=== PATIENT | female | born 1990 | race Caucasian/White ===

== ENCOUNTER 2017-04-29 13:21 | Emergency (ER) | payer BC, OTHER ==
[2017-04-29] MEDS ORDERED: Adenosine 6 MG/2 ML SDV IVPUSH ONE (13:28)
[2017-04-29] MEDS ORDERED: Sodium Chloride 0.9% 1,000 ML IV ONE (13:28)
[2017-04-29 14:28] LABS: CHLORIDE,CL 108 mmol/L (98-110); SODIUM,NA 138 mmol/L (136-146)
[2017-04-29] MEDS ORDERED: Iopamidol 755 MG/ML 200 ML Multipack Bottle IVPUSH ONE (15:44)
--- NOTE | 2017-04-29 16:09 | CT ---
EXAMINATION: CTA chest HISTORY: Pain, patient is COMPARISON: None TECHNIQUE: Axial CT images obtained through the chest following the administration of 30 mL of Isovue -370 the left antecubital fossa. Coronal and sagittal reconstructions obtained. FINDINGS: The lungs are clear without focal consolidation. No pleural effusion or pneumothorax. Mild focal air trapping within the lung bases. The heart is normal in size without a pericardial effusion. Thoracic aorta is normal in caliber. The central pulmonary arteries are clear to the segmental level . There is a possible filling defect noted within the left upper lobe lobe inferiorly, however there is moderate motion artifact. The thoracic aorta is normal in caliber. No mediastinal or hilar lymphad enopathy. No axillary lymphadenopathy. The visualized images of the upper abdomen appear normal. No suspicious osseous abnormalities noted. IMPRESSION: 1. The pulmonary arteries are patent to the segmental level however there is a possible subsegmental a tiny pulmonary embolism is not excluded. 2. Otherwise no acute cardiopulmonary findings. Filling defect within the left upper lobe however thi s cannot be confirmed due to adjacent motion.
--- NOTE | 2017-04-29 16:29 | US ---
EXAMINATION: Transabdominal obstetric ultrasound HISTORY: Tachycardia COMPARISON: 01/15/2017 TECHNIQUE: Grayscale, M-mode, and color Doppler imaging obtained. FINDINGS: There is a single live intrauterine noted in a cephalic position. There is a thre e-vessel cord. Placenta is anterior and appears intact. heart rate is 142 bpm. Amniotic fluid i ndex is normal at 18 cm. Positive breathing, motion, and tone noted. IMPRESSION: 1. Single live intrauterine in a cephalic position. 2. Biophysical profile 10/09.
--- NOTE | 2017-04-29 16:52 | EDM.PDOC ---
ED HPI GENERAL MEDICAL PROBLEM - General Chief Complaint: General Stated Complaint: IRREGULAR HEART RATE Time Seen by Provider: 04/29/17 16:49 Source of Information: Reports: Patient - History of Present Illness INITIAL COMMENTS - FREE TEXT/NARRATIVE: HISTORY AND PHYSICAL: History of present illness: [26-year-old female 35 weeks with IUP presents with chest pain shortness breath rapid heart rates desk actually SVT 180s 190s she was provided adenosine 6 mg IV which converted her to normal sinus rhythm along with 1 L bolus Since she has been comfortable shortness breath resolved no chest pain shortness breath headache dizziness palpitation no bowel or urine symptoms no fever nausea vomiting chills sweats ] Review of systems: As per history of present illness and below otherwise all systems reviewed and negative. Past medical history: As per history of present illness and as reviewed below otherwise noncontributory. Surgical history: As per history of present illness and as reviewed below otherwise noncontributory. Social history: No reported history of drug or alcohol abuse. Family history: As per history of present illness and as reviewed below otherwise noncontributory. Physical exam: HEENT: Atraumatic, normocephalic, pupils reactive, negative for conjunctival pallor or scleral icterus, mucous membranes moist, throat clear, neck supple, nontender, trachea midline. Lungs: Clear to auscultation, breath sounds equal bilaterally, chest nontender. Heart: S1S2, regular, negative for clicks, rubs, or JVD. Abdomen: Soft, nondistended, nontender. Negative for masses or hepatosplenomegaly. Negative for costovertebral tenderness. Pelvis: Stable nontender. Genitourinary: Deferred. Rectal: Deferred. Extremities: Atraumatic, negative for cords or calf pain. Neurovascular unremarkable. Neuro: Awake, alert, oriented. Cranial nerves II through XII unremarkable. Cerebellum unremarkable. Motor and sensory unremarkable throughout. Exam nonfocal. Diagnostics: [CBC CMP troponin d-dimer CT MG of chest Biophysical profile ] Therapeutics: [1 L normal saline bolus Adenosine 6 mg IV ] Impression: [SVT-resolved 35 weeks with IUP I've been consult with her OB provider Chloe David helped formulate plan she will be following the patient this week, moving her appointment up one week essentially ] Definitive disposition and diagnosis as appropriate pending reevaluation and review of above. - Related Data Allergies Allergy/AdvReac Type Severity Reaction Status Date / Time No Known Allergies Allergy Verified 04/29/17 13:26 Home Meds: Home Meds Sertraline [Zoloft] 100 mg PO DAILY 10/10/15 [History] Pantoprazole Sodium [Pantoprazole Sodium] 40 mg PO DAILY 04/29/17 [History] Past Medical History - Past Health History Medical/Surgical History: Denies Medical/Surgical History Social & Family History - Tobacco Use Smoking Status *Q: Never Smoker Second Hand Smoke Exposure: No - Caffeine Use Caffeine Use: Reports: Coffee, Tea - Recreational Drug Use Recreational Drug Use: No ED ROS GENERAL - Review of Systems Review Of Systems: ROS reveals no pertinent complaints other than HPI. ED EXAM, GENERAL - Physical Exam Exam: See Below Course - Vital Signs Last Recorded V/S: Last Vital Signs Temp 97.4 F 04/29/17 13:33 Pulse 188 H 04/29/17 13:33 Resp 18 04/29/17 13:33 BP 141/78 H 04/29/17 13:33 Pulse Ox 98 04/29/17 13:33 - Orders/Labs/Meds Orders: Active Orders 24 hr Category Date Time Status EKG Documentation Completion [RC] STAT Care 04/29/17 13:28 Active Labs: Laboratory Tests 04/29/17 04/29/17 04/29/17 Range/Units 13:38 13:38 13:38 WBC 13.68 H (4.0-11.0) K/uL RBC 4.53 (4.30-5.90) M/uL Hgb 10.8 L (12.0-16.0) g/dL Hct 33.2 L (36.0-46.0) % MCV 73.3 L (80.0-98.0) fL MCH 23.8 L (27.0-32.0) pg MCHC 32.5 (31.0-37.0) g/dL RDW Std Deviation 39.4 (28.0-62.0) fl RDW Coeff of Adan 15 (11.0-15.0) % Plt Count 266 (150-400) K/uL MPV 10.80 (7.40-12.00) fL Neut % (Auto) 68.1 (48.0-80.0) % Lymph % (Auto) 24.9 (16.0-40.0) % [place] % (Auto) 6.4 (0.0-15.0) % Eos % (Auto) 0.5 (0.0-7.0) % Baso % (Auto) 0.1 (0.0-1.5) % Neut # (Auto) 9.3 H (1.4-5.7) K/uL Lymph # (Auto) 3.4 H (0.6-2.4) K/uL [place] # (Auto) 0.9 H (0.0-0.8) K/uL Eos # (Auto) 0.1 (0.0-0.7) K/uL Baso # (Auto) 0.0 (0.0-0.1) K/uL Nucleated RBC % 0.0 /100WBC Nucleated RBCs # 0 K/uL D-Dimer, Quantitative 1.40 H (0.0-0.52) mg/LFEU Sodium 138 (136-146) mmol/L Potassium 3.8 (3.5-5.1) mmol/L Chloride 108 (98-110) mmol/L Carbon Dioxide 17 L (21-31) mmol/L BUN 8 (6.0-23.0) mg/dL Creatinine 0.6 (0.6-1.5) mg/dL Est Cr Clr Drug Dosing 149.79 mL/min Estimated GFR (MDRD) > 60.0 ml/min Glucose 96 (60-110) mg/dL Calcium 9.3 (8.8-10.8) mg/dL Total Bilirubin 0.3 (0.1-1.5) mg/dL AST 20 (5-40) IU/L ALT 19 (8-54) IU/L Alkaline Phosphatase 116 (40-150) Troponin I < 0.10 (0.0-0.29) NG/ML Total Protein 6.6 (6.0-8.0) g/dL Albumin 3.4 L (3.5-5.0) g/dL Globulin 3.2 (2.0-3.5) g/dL Albumin/Globulin Ratio 1.1 L (1.3-2.8) Urine Color Urine Appearance Urine pH (5.0-8.0) Ur Specific [place] (1.001-1.035) Urine Protein (NEGATIVE) mg/dL Urine Glucose (UA) (NEGATIVE) mg/dL Urine Ketones (NEGATIVE) mg/dL Urine Occult Blood (NEGATIVE) Urine Nitrite (NEGATIVE) Urine Bilirubin (NEGATIVE) Urine Urobilinogen (<2.0) EU/dL Ur Leukocyte Esterase (NEGATIVE) Urine RBC (0-2/HPF) Urine WBC (0-5/HPF) Ur Epithelial Cells (NONE-FEW) Urine Bacteria (NEGATIVE) 04/29/17 Range/Units 14:50 WBC (4.0-11.0) K/uL RBC (4.30-5.90) M/uL Hgb (12.0-16.0) g/dL Hct (36.0-46.0) % MCV (80.0-98.0) fL MCH (27.0-32.0) pg MCHC (31.0-37.0) g/dL RDW Std Deviation (28.0-62.0) fl RDW Coeff of Adan (11.0-15.0) % Plt Count (150-400) K/uL MPV (7.40-12.00) fL Neut % (Auto) (48.0-80.0) % Lymph % (Auto) (16.0-40.0) % [place] % (Auto) (0.0-15.0) % Eos % (Auto) (0.0-7.0) % Baso % (Auto) (0.0-1.5) % Neut # (Auto) (1.4-5.7) K/uL Lymph # (Auto) (0.6-2.4) K/uL [place] # (Auto) (0.0-0.8) K/uL Eos # (Auto) (0.0-0.7) K/uL Baso # (Auto) (0.0-0.1) K/uL Nucleated RBC % /100WBC Nucleated RBCs # K/uL D-Dimer, Quantitative (0.0-0.52) mg/LFEU Sodium (136-146) mmol/L Potassium (3.5-5.1) mmol/L Chloride (98-110) mmol/L Carbon Dioxide (21-31) mmol/L BUN (6.0-23.0) mg/dL Creatinine (0.6-1.5) mg/dL Est Cr Clr Drug Dosing mL/min Estimated GFR (MDRD) ml/min Glucose (60-110) mg/dL Calcium (8.8-10.8) mg/dL Total Bilirubin (0.1-1.5) mg/dL AST (5-40) IU/L ALT (8-54) IU/L Alkaline Phosphatase (40-150) Troponin I (0.0-0.29) NG/ML Total Protein (6.0-8.0) g/dL Albumin (3.5-5.0) g/dL Globulin (2.0-3.5) g/dL Albumin/Globulin Ratio (1.3-2.8) Urine Color YELLOW Urine Appearance CLEAR Urine pH 6.0 (5.0-8.0) Ur Specific [place] <= 1.005 (1.001-1.035) Urine Protein NEGATIVE (NEGATIVE) mg/dL Urine Glucose (UA) NEGATIVE (NEGATIVE) mg/dL Urine Ketones NEGATIVE (NEGATIVE) mg/dL Urine Occult Blood NEGATIVE (NEGATIVE) Urine Nitrite NEGATIVE (NEGATIVE) Urine Bilirubin NEGATIVE (NEGATIVE) Urine Urobilinogen 0.2 (<2.0) EU/dL Ur Leukocyte Esterase NEGATIVE (NEGATIVE) Urine RBC 0-1 (0-2/HPF) Urine WBC 0-1 (0-5/HPF) Ur Epithelial Cells RARE (NONE-FEW) Urine Bacteria RARE (NEGATIVE) Meds: Medications Discontinued Medications Generic Name Dose Route Start Last Admin Trade Name Freq PRN Reason Stop Dose Admin Adenosine 6 mg 04/29/17 13:28 04/29/17 14:53 Adenocard IVPUSH 04/29/17 13:29 6 mg NOW ONE Administration Sodium Chloride 1,000 mls @ 999 mls/hr 04/29/17 13:28 04/29/17 14:00 Normal Saline IV 04/29/17 14:28 999 mls/hr STAT ONE Administration Iopamidol 50 ml 04/29/17 15:44 04/29/17 15:45 Isovue Multipack-370 (76%) IVPUSH 04/29/17 15:45 50 ml ONETIME ONE Administration Departure - Departure Time of Disposition: 16:51 Disposition: Home, Self-Care 01 Condition: Good Clinical Impression: SVT (supraventricular tachycardia) - Discharge Information Referrals: PCP,Unknown [Primary Care Provider] - Additional Instructions: Follow-up with OB provider or Saturday, Chloe Garlanderd is aware and desires to follow-up within the week. No specific recommendation at this time Return if symptoms persist or worsen The following information is given to patients seen in the emergency department who are being discharged to home. This information is to outline your options for follow-up care. We provide all patients seen in our emergency department with a follow-up referral. The need for follow-up, as well as the timing and circumstances, are variable depending upon the specifics of your emergency department visit. If you don't have a primary care physician on staff, we will provide you with a referral. We always advise you to contact your personal physician following an emergency department visit to inform them of the circumstance of the visit and for follow-up with them and/or the need for any referrals to a consulting specialist. The emergency department will also refer you to a specialist when appropriate. This referral assures that you have the opportunity for follow-up care with a specialist. All of these measure are taken in an effort to provide you with optimal care, which includes your follow-up. Under all circumstances we always encourage you to contact your private physician who remains a resource for coordinating your care. When calling for follow-up care, please make the office aware that this follow-up is from your recent emergency room visit. If for any reason you are refused follow-up, please contact the [facility] emergency department at and asked to speak to the emergency department charge nurse. - My Orders Last 24 Hours: My Active Orders 04/29/17 13:28 EKG Documentation Completion [RC] STAT - Assessment/Plan Last 24 Hours: My Active Orders 04/29/17 13:28 EKG Documentation Completion [RC] STAT
[2017-04-29 17:07] VITALS: BP 114/65
== END 2017-04-29 17:01 | disposition home or self-care (01) ==
LOC: MW.ED 13:21
DX: O99.413 Diseases of the circulatory system complicating pregnancy, third trimester (principal); I47.1 Supraventricular tachycardia; Z3A.35 35 weeks gestation of pregnancy; Z79.899 Other long term (current) drug therapy
CPT/HCPCS: 36415; 59025; 71275; 76819; 80053; 81001; 84484; 85025; 85379; 93005; 96361; 96374; 99285; J0153; J7040; Q9967; 99283

== ENCOUNTER 2017-05-16 16:36 | Inpatient (IN) | payer BC, OTHER ==
[2017-05-16] MEDS ORDERED: Terbutaline 1 MG/ML SDV SUBCUT PRN (17:11)
[2017-05-16] MEDS ORDERED: Sodium Chloride 0.9% 2.5 ML Syringe FLUSH PRN (17:11)
[2017-05-16] MEDS ORDERED: Lidocaine 1% 50 ML MDV INJECT PRN (17:11)
[2017-05-16] MEDS ORDERED: Misoprostol 200 MCG Tab PO PRN (17:11)
[2017-05-16] MEDS ORDERED: Methylergonovine 0.2 MG/1 ML Amp IM PRN (17:11)
[2017-05-16] MEDS ORDERED: Tranexamic Acid 1,000 MG in Sodium Chloride 0.9% 100 ML IV PRN (17:11)
[2017-05-16] MEDS ORDERED: Nalbuphine 10 MG/1 ML Vial IVPUSH PRN (17:11)
[2017-05-16] MEDS ORDERED: Sodium Chloride 0.9% 10 ML Syringe FLUSH PRN (17:11)
[2017-05-16] MEDS ORDERED: Carboprost Tromethamine 250 MCG/1 ML Amp IM PRN (17:11)
[2017-05-16] MEDS ORDERED: Water For Irrigation,Sterile 1,000 ML Container IRR PRN (17:11)
[2017-05-16] MEDS ORDERED: Oxytocin/0.9 % Sodium Chloride 30 UNIT/500 ML BAG IV SCH ×2 (17:15)
[2017-05-16] MEDS ORDERED: Ampicillin 2 GM in Sodium Chloride 0.9% 100 ML IV ONE (17:30)
[2017-05-16] MEDS ORDERED: hydrOXYzine Pamoate 25 MG Cap PO PRN (17:52)
--- NOTE | 2017-05-16 18:01 | PCM.LDHP ---
L&D History of Present Illness - General Date of Service: 05/16/17 Admit Problem/Dx: Patient Status Order with Admit Dx/Problem 05/16/17 17:11 Patient Status [ADT] Routine Admission Diagnosis/Problem Admission Diagnosis/Problem - planned 05/16/17 17:55 26yo EDC 06/01/2017 37 5/7wks. IOL due to Maternal SVT's, B+, R- equivocal, GBS pos, Source of Information: Patient History Limitations: Reports: No Limitations - History of Present Illness Improves with: Reports: None Worsens with: Reports: None Associated Symptoms: Reports: N - Related Data Allergies/Adverse Reactions: Allergies Allergy/AdvReac Type Severity Reaction Status Date / Time No Known Allergies Allergy Verified 04/29/17 13:26 Home Medications: Home Meds Sertraline [Zoloft] 100 mg PO DAILY 10/10/15 [History] Pantoprazole Sodium [Pantoprazole Sodium] 40 mg PO DAILY 04/29/17 [History] Past Medical History - Past Health History Medical/Surgical History: Denies Medical/Surgical History Social & Family History - Tobacco Use Smoking Status *Q: Never Smoker Second Hand Smoke Exposure: No - Caffeine Use Caffeine Use: Reports: Coffee, Tea - Recreational Drug Use Recreational Drug Use: No H&P Review of Systems - Review of Systems: Review Of Systems: See Below General: Reports: No Symptoms HEENT: Reports: No Symptoms Pulmonary: Reports: No Symptoms Cardiovascular: Reports: No Symptoms Gastrointestinal: Reports: No Symptoms Genitourinary: Reports: No Symptoms Musculoskeletal: Reports: No Symptoms Skin: Reports: No Symptoms Psychiatric: Reports: No Symptoms Neurological: Reports: No Symptoms Hematologic/Lymphatic: Reports: No Symptoms Immunologic: Reports: No Symptoms L&D Exam - Exam Exam: See Below - OB Specific Movement: Active Presentation: Vertex - [place] Score [place] Score Cervix Position: Posterior [place] Score Consistency: Medium [place] Score Effacement: 0-30% [place] Score Dilation: Closed [place] Score Infant's Station: -3 [place] Score Total: 1 - Exam General: Alert, Oriented, Cooperative HEENT: Hearing Intact Lungs: Normal Respiratory Effort GI/Abdominal Exam: Soft Rectal Exam: Deferred Genitourinary: Normal external exam, Normal bimanual exam Back Exam: Full Range of Motion Extremities: Normal Range of Motion, Non-Tender, No Pedal Edema, Normal Capillary Refill Skin: Warm, Dry, Intact Neurological: Cranial Nerves Intact, Normal Gait, Normal Speech, Normal Tone Psychiatric: Alert, Normal Affect, Normal Mood - Problem List (1) Supervision of normal IUP (intrauterine ) in multigravida SNOMED Code(s): 433687318, 968091434 ICD Code: Z34.80 - ENCOUNTER FOR SUPRVSN OF NORMAL , UNSP TRIMESTER Status: Acute Priority: High Current Visit: Yes Qualifiers: Trimester: third trimester Qualified Code(s): Z34.83 - Encounter for supervision of other normal , third trimester (2) GBS (group B Streptococcus carrier), +RV culture, currently SNOMED Code(s): 8464095321045, 2610481218803 ICD Code: O99.820 - STREPTOCOCCUS B CARRIER STATE COMPLICATING Status: Acute Priority: High Current Visit: Yes (3) SVT (supraventricular tachycardia) SNOMED Code(s): 1016305 ICD Code: I47.1 - SUPRAVENTRICULAR TACHYCARDIA Status: Acute Priority: High Current Visit: No Problem List Initiated/Reviewed/Updated: Yes Orders Last 24hrs: Active Orders 24 hr Category Date Time Status Patient Status [ADT] Routine ADT 05/16/17 17:11 Active Bedrest Bathroom Privileges [RC] ASDIRECTED Care 05/16/17 17:11 Active Communication Order [RC] ASDIRECTED Care 05/16/17 17:11 Active Communication Order [RC] ASDIRECTED Care 05/16/17 17:11 Active Communication Order [RC] ASDIRECTED Care 05/16/17 17:11 Active Heart Tones [RC] CONTINUOUS Care 05/16/17 17:11 Active Non Stress Test [RC] PER UNIT ROUTINE Care 05/16/17 17:11 Active May Shower [RC] ASDIRECTED Care 05/16/17 17:11 Active Notify Provider [RC] PRN Care 05/16/17 17:11 Active Notify Provider [RC] PRN Care 05/16/17 17:11 Active Notify Provider [RC] PRN Care 05/16/17 17:11 Active Notify Provider [RC] STAT Care 05/16/17 17:11 Active Oxygen Therapy [RC] ASDIRECTED Care 05/16/17 17:11 Active Up ad Mora [RC] ASDIRECTED Care 05/16/17 17:11 Active Vaginal Exam [RC] PRN Care 05/16/17 17:11 Active Vaginal Exam [RC] PRN Care 05/16/17 17:11 Active Vital Signs [RC] PER UNIT ROUTINE Care 05/16/17 17:11 Active Vital Signs [RC] PER UNIT ROUTINE Care 05/16/17 17:11 Active Regular Diet [DIET] Diet 05/16/17 Dinner Active CBC W/O DIFF,HEMOGRAM [HEME] Routine Lab 05/16/17 17:11 Ordered TYPE AND SCREEN [BBK] Routine Lab 05/16/17 17:11 Ordered Ampicillin 1 gm Med 05/16/17 21:30 Active Sodium Chloride 0.9% [Normal Saline] 50 ml IV Q4H Ampicillin 2 gm Med 05/16/17 17:30 Active Sodium Chloride 0.9% [Normal Saline] 100 ml IV ONETIME Carboprost Tromethamine [Hemabate DS] Med 05/16/17 17:11 Active 250 mcg IM ASDIRECTED PRN Lactated Ringers [Ringers, Lactated] 1,000 ml Med 05/16/17 17:15 Active IV ASDIRECTED Lidocaine 1% [Xylocaine 1%] Med 05/16/17 17:11 Active 50 ml INJECT .ONCE PRN Methylergonovine [Methergine] Med 05/16/17 17:11 Active 0.2 mg IM ASDIRECTED PRN Misoprostol [Cytotec] Med 05/16/17 17:11 Active 200 mcg PO .ONCE PRN Misoprostol [Cytotec] Med 05/16/17 17:40 Active 25 mcg PO Q4H PRN Misoprostol [Cytotec] Med 05/16/17 17:40 Active 25 mcg VAG Q4H PRN Nalbuphine [Nubain] Med 05/16/17 17:11 Active 10 mg IVPUSH Q1H PRN Oxytocin/0.9 % Sodium Chloride [Oxytocin 30 Unit/500 ML Med 05/16/17 17:15 Active -NS] 30 unit in 500 ml IV TITRATE Oxytocin/0.9 % Sodium Chloride [Oxytocin 30 Unit/500 ML Med 05/16/17 17:15 Active -NS] 30 unit in 500 ml IV TITRATE Sodium Chloride 0.9% [Saline Flush] Med 05/16/17 17:11 Active 10 ml FLUSH ASDIRECTED PRN Sodium Chloride 0.9% [Saline Flush] Med 05/16/17 17:11 Active 2.5 ml FLUSH ASDIRECTED PRN Terbutaline [Brethine] Med 05/16/17 17:11 Active 0.25 mg SUBCUT ASDIRECTED PRN Tranexamic Acid [Cyklokapron] 1,000 mg Med 05/16/17 17:11 Active Sodium Chloride 0.9% [Normal Saline] 100 ml IV ONETIME Water For Irrigation,Sterile [Sterile Water for Med 05/16/17 17:11 Active Irrigation] 1,000 ml IRR ASDIRECTED PRN hydrOXYzine Pamoate [Vistaril] Med 05/16/17 17:52 Ordered 50 mg PO BEDTIME PRN Scalp Electrode [WOMSER] Per Unit Routine Oth 05/16/17 17:11 Ordered Medication Administration Instruction [OM.PC] Q3H Oth 05/16/17 17:15 Ordered Peripheral IV Insertion Adult [OM.PC] Routine Oth 05/16/17 17:11 Ordered Resuscitation Status Routine Resus Stat 05/16/17 17:11 Ordered Medication Orders Carboprost Tromethamine (Hemabate Ds) 250 mcg IM ASDIRECTED PRN PRN Reason: Post Hemorrhage Ampicillin Sodium 1 gm/ Sodium (Chloride) 50 mls @ 100 mls/hr IV Q4H CARMEN Ampicillin Sodium 2 gm/ Sodium (Chloride) 100 mls @ 200 mls/hr IV ONETIME ONE Stop: 05/16/17 17:59 Lactated Ringer's (Ringers, Lactated) 1,000 mls @ 150 mls/hr IV ASDIRECTED CARMEN Oxytocin/Sodium Chloride (Oxytocin 30 Unit/500 Ml-Ns) 30 unit in 500 mls @ 250 mls/hr IV TITRATE CARMEN Oxytocin/Sodium Chloride (Oxytocin 30 Unit/500 Ml-Ns) 30 unit in 500 mls @ 2 mls/hr IV TITRATE CARMEN; 2 MUNITS/MIN PRN Reason: Protocol Tranexamic Acid 1,000 mg/ (Sodium Chloride) 110 mls @ 660 mls/hr IV ONETIME PRN PRN Reason: Bleeding Lidocaine HCl (Xylocaine 1%) 50 ml INJECT .ONCE PRN PRN Reason: Laceration repair Methylergonovine Maleate (Methergine) 0.2 mg IM ASDIRECTED PRN PRN Reason: Post Hemorrhage Misoprostol (Cytotec) 200 mcg PO .ONCE PRN PRN Reason: Post Hemorrhage Misoprostol (Cytotec) 25 mcg VAG Q4H PRN PRN Reason: Cervical Ripening Misoprostol (Cytotec) 25 mcg PO Q4H PRN PRN Reason: Cervical Ripening Nalbuphine HCl (Nubain) 10 mg IVPUSH Q1H PRN PRN Reason: Pain (severe 7-10) Sodium Chloride (Saline Flush) 10 ml FLUSH ASDIRECTED PRN PRN Reason: Keep Vein Open Sodium Chloride (Saline Flush) 2.5 ml FLUSH ASDIRECTED PRN PRN Reason: Keep Vein Open Sterile Water (Sterile Water For Irrigation) 1,000 ml IRR ASDIRECTED PRN PRN Reason: delivery Terbutaline Sulfate (Brethine) 0.25 mg SUBCUT ASDIRECTED PRN PRN Reason: Tacysystole Assessment/Plan Comment:: IOL A: 26yo EDC 06/01/2017 37 5/7wks. IOL due to Maternal SVT's, B+, R- equivocal, GBS pos, P: admit, start IOL cytotec to pitocin, Visteril for sleep, Treat GBS when pitocin started or in active labor, If SVT call provider and start cardiac monitoring, anticipate . Dr Ceron updated
[2017-05-16] MEDS: Misoprostol 25 MCG (1/4 of 100 MCG) Tab PO PRN (19:47)
[2017-05-16] MEDS: Misoprostol 25 MCG (1/4 of 100 MCG) Tab VAG PRN (19:48)
[2017-05-16] MEDS ORDERED: Ampicillin 1 GM in Sodium Chloride 0.9% 50 ML IV SCH (21:30)
[2017-05-17] MEDS: Misoprostol 25 MCG (1/4 of 100 MCG) Tab PO PRN (01:38)
[2017-05-17] MEDS: Misoprostol 25 MCG (1/4 of 100 MCG) Tab VAG PRN (01:39)
[2017-05-17] MEDS ORDERED: Ampicillin 2 GM AdvVial IV ONE (06:21)
[2017-05-17] MEDS ORDERED: Sodium Chloride 0.9% 100 ML ONE (06:22)
[2017-05-17] MEDS: Lactated Ringers 1,000 ML IV SCH ×2 (06:30→14:15)
[2017-05-17] MEDS ORDERED: Loperamide 2 MG Cap PO ONE (12:43)
[2017-05-17] MEDS: Ampicillin 1 GM in Sodium Chloride 0.9% 50 ML IV SCH ×2 (14:46→18:41)
--- NOTE | 2017-05-17 14:56 | PCM.PREANE ---
Preanesthetic Assessment - Anesthesia/Transfusion/Family Hx Family History of Anesthesia Reaction: No - Review of Systems General: No Symptoms Pulmonary: No Symptoms Cardiovascular: No Symptoms Gastrointestinal: No Symptoms Neurological: No Symptoms Other: Reports: None (Denies any bleeding or clotting problems) - Physical Assessment Height: 1.75 m Weight: 113.398 kg ASA Class: 2 Mental Status: Alert & Oriented x3 Airway Class: Mallampati = 2 Dentition: Reports: Normal Dentition ROM/Head Extension: Full - Lab Values: Laboratory Last Values WBC 10.50 K/uL (4.0-11.0) 05/16/17 17:49 RBC 4.53 M/uL (4.30-5.90) 05/16/17 17:49 Hgb 10.5 g/dL (12.0-16.0) L 05/16/17 17:49 Hct 32.7 % (36.0-46.0) L 05/16/17 17:49 MCV 72.2 fL (80.0-98.0) L 05/16/17 17:49 MCH 23.2 pg (27.0-32.0) L 05/16/17 17:49 MCHC 32.1 g/dL (31.0-37.0) 05/16/17 17:49 RDW Std Deviation 40.5 fl (28.0-62.0) 05/16/17 17:49 RDW Coeff of Adan 16 % (11.0-15.0) H 05/16/17 17:49 Plt Count 246 K/uL (150-400) 05/16/17 17:49 MPV 11.50 fL (7.40-12.00) 05/16/17 17:49 Nucleated RBC % 0.3 /100WBC 05/16/17 17:49 Nucleated RBCs # 0 K/uL 05/16/17 17:49 Blood Type B POSITIVE 05/16/17 17:49 Antibody Screen NEGATIVE 05/16/17 17:49 - Allergies Allergies/Adverse Reactions: Allergies Allergy/AdvReac Type Severity Reaction Status Date / Time No Known Allergies Allergy Verified 04/29/17 13:26 - Acknowledgements Anesthesia Type Planned: Epidural Pt an Appropriate Candidate for the Planned Anesthesia: Yes Alternatives and Risks of Anesthesia Discussed w Pt/Guardian: Yes Pt/Guardian Understands and Agrees with Anesthesia Plan: Yes PreAnesthesia Questionnaire - Past Health History Medical/Surgical History: Denies Medical/Surgical History FAMILY MEDIATOR History: Reports: Ectopic , - SUBSTANCE USE Smoking Status *Q: Never Smoker Second Hand Smoke Exposure: No Recreational Drug Use History: No - HOME MEDS Home Medications: Home Meds Sertraline [Zoloft] 100 mg PO DAILY 10/10/15 [History] Pantoprazole Sodium [Pantoprazole Sodium] 40 mg PO DAILY 04/29/17 [History] - CURRENT (IN HOUSE) MEDS Current Meds: Current Medications Carboprost Tromethamine (Hemabate Ds) 250 mcg IM ASDIRECTED PRN PRN Reason: Post Hemorrhage Hydroxyzine Pamoate (Vistaril) 50 mg PO BEDTIME PRN PRN Reason: Sleep Last Admin: 05/17/17 00:02 Dose: 50 mg Lactated Ringer's (Ringers, Lactated) 1,000 mls @ 150 mls/hr IV ASDIRECTED CARMEN Last Admin: 05/17/17 14:15 Dose: 150 mls/hr Oxytocin/Sodium Chloride (Oxytocin 30 Unit/500 Ml-Ns) 30 unit in 500 mls @ 250 mls/hr IV TITRATE CARMEN Oxytocin/Sodium Chloride (Oxytocin 30 Unit/500 Ml-Ns) 30 unit in 500 mls @ 2 mls/hr IV TITRATE CARMEN; 2 MUNITS/MIN PRN Reason: Protocol Last Titration: 05/17/17 12:30 Dose: 0 munits/min, 0 mls/hr Tranexamic Acid 1,000 mg/ (Sodium Chloride) 110 mls @ 660 mls/hr IV ONETIME PRN PRN Reason: Bleeding Ampicillin Sodium 1 gm/ Sodium (Chloride) 50 mls @ 100 mls/hr IV Q4H CARMEN Last Admin: 05/17/17 14:46 Dose: 100 mls/hr Lidocaine HCl (Xylocaine 1%) 50 ml INJECT .ONCE PRN PRN Reason: Laceration repair Methylergonovine Maleate (Methergine) 0.2 mg IM ASDIRECTED PRN PRN Reason: Post Hemorrhage Misoprostol (Cytotec) 200 mcg PO .ONCE PRN PRN Reason: Post Hemorrhage Misoprostol (Cytotec) 25 mcg VAG Q4H PRN PRN Reason: Cervical Ripening Last Admin: 05/17/17 01:39 Dose: 25 mcg Misoprostol (Cytotec) 25 mcg PO Q4H PRN PRN Reason: Cervical Ripening Last Admin: 05/17/17 01:38 Dose: 25 mcg Nalbuphine HCl (Nubain) 10 mg IVPUSH Q1H PRN PRN Reason: Pain (severe 7-10) Sodium Chloride (Saline Flush) 10 ml FLUSH ASDIRECTED PRN PRN Reason: Keep Vein Open Sodium Chloride (Saline Flush) 2.5 ml FLUSH ASDIRECTED PRN PRN Reason: Keep Vein Open Sterile Water (Sterile Water For Irrigation) 1,000 ml IRR ASDIRECTED PRN PRN Reason: delivery Terbutaline Sulfate (Brethine) 0.25 mg SUBCUT ASDIRECTED PRN PRN Reason: Tacysystole Discontinued Medications Ampicillin Sodium (Ampicillin) Confirm Administered Dose 2 gm IV .STK-MED ONE Stop: 05/17/17 06:22 Last Admin: 05/17/17 10:47 Dose: Not Given Ampicillin Sodium 1 gm/ Sodium (Chloride) 50 mls @ 100 mls/hr IV Q4H CARMEN Last Admin: 05/17/17 10:42 Dose: 100 mls/hr Ampicillin Sodium 2 gm/ Sodium (Chloride) 100 mls @ 200 mls/hr IV ONETIME ONE Stop: 05/16/17 17:59 Last Admin: 05/17/17 06:37 Dose: 200 mls/hr Sodium Chloride (Normal Saline) Confirm Administered Dose 100 mls @ as directed .ROUTE .STK-MED ONE Stop: 05/17/17 06:23 Last Admin: 05/17/17 10:47 Dose: Not Given Fentanyl/Bupivacaine HCl (Jrnzogvs-Vcuuq-Hr 2 Mcg/Ml-0.125%) Confirm Administered Dose 100 mls @ as directed EP .STK-MED ONE Stop: 05/17/17 14:04 Loperamide HCl (Imodium) 2 mg PO ONETIME ONE Stop: 05/17/17 12:44 Last Admin: 05/17/17 14:09 Dose: 2 mg
[2017-05-17] MEDS ORDERED: Oxytocin 10 Units/1 ML SDV ONE (19:31)
[2017-05-17] MEDS ORDERED: Lanolin 100% Cream 7 GM Tube TOP PRN (19:49)
[2017-05-17] MEDS ORDERED: oxyCODONE 5 MG Tab PO PRN (19:49)
[2017-05-17] MEDS ORDERED: Bisacodyl 10 MG Supp RECTAL PRN (19:49)
[2017-05-17] MEDS ORDERED: Docusate Sodium 100 MG Cap PO PRN (19:49)
[2017-05-17] MEDS ORDERED: Witch Hazel Medicated Pads 40/Jar TOP PRN (19:49)
[2017-05-17] MEDS ORDERED: Ibuprofen 400 MG Tab PO PRN (19:49)
[2017-05-17] MEDS ORDERED: Benzocaine/Menthol 20%-0.5% Spray 78 GM Cannister TOP PRN (19:49)
[2017-05-17] MEDS ORDERED: Acetaminophen 500 MG Tab PO PRN ×2 (19:49)
[2017-05-17] MEDS: Ibuprofen 800 MG Tab PO PRN (20:08)
[2017-05-18] MEDS: Ibuprofen 800 MG Tab PO PRN (09:52)
--- NOTE | 2017-05-18 14:30 | PCM48HPAN ---
Post Anesthesia Note - EVALUATION WITHIN 48HRS OF ANESTHETIC Vital Signs in Normal Range: Yes Patient Participated in Evaluation: Yes Respiratory Function Stable: Yes Airway Patent: Yes Cardiovascular Function Stable: Yes Hydration Status Stable: Yes Pain Control Satisfactory: Yes Nausea and Vomiting Control Satisfactory: Yes Mental Status Recovered: Yes Resp Rate: 16 - COMMENTS/OBSERVATIONS Free Text/Narrative:: Sitting up in bed with baby and denies any complaints.
[2017-05-18 16:22] VITALS: BP 111/69
[2017-05-18] MEDS ORDERED: Measles, Mumps & Rubella Vaccine 0.5 ML SDV SUBCUT ONE (20:45)
--- NOTE | 2017-05-18 20:45 | PCM.DCSUM1 ---
Discharge Summary - Hospital Course Free Text/Narrative:: Discharge home with infant. Follow up in 6 weeks or sooner if needed. - Discharge Data Discharge Date: 05/18/17 Discharge Disposition: Home, Self-Care 01 Condition: Good - Discharge Diagnosis/Problem(s) (1) Supervision of normal IUP (intrauterine ) in multigravida SNOMED Code(s): 031978838, 022600632 ICD Code: Z34.80 - ENCOUNTER FOR SUPRVSN OF NORMAL , UNSP TRIMESTER Status: Acute Priority: High Current Visit: Yes Qualifiers: Trimester: third trimester Qualified Code(s): Z34.83 - Encounter for supervision of other normal , third trimester (2) GBS (group B Streptococcus carrier), +RV culture, currently SNOMED Code(s): 7342029216104, 4446888632289 ICD Code: O99.820 - STREPTOCOCCUS B CARRIER STATE COMPLICATING Status: Acute Priority: High Current Visit: Yes (3) SVT (supraventricular tachycardia) SNOMED Code(s): 1992718 ICD Code: I47.1 - SUPRAVENTRICULAR TACHYCARDIA Status: Acute Priority: High Current Visit: No - Patient Instructions Diet: Usual Diet as Tolerated Activity: As Tolerated, No Strenuous Activities, Rest and Relax Today Driving: May Drive Today Showering/Bathing: May Shower Notify Provider of: Fever, Increased Pain, Swelling and Redness, Nausea and/or Vomiting Other/Special Instructions: Discharge home with . Follow up in 6 weeks or sooner if needed. - Discharge Plan Home Medications: Home Meds Sertraline [Zoloft] 100 mg PO DAILY 10/10/15 [History] Pantoprazole Sodium [Pantoprazole Sodium] 40 mg PO DAILY 04/29/17 [History] - General Info Date of Service: 05/18/17 Admission Dx/Problem (Free Text: Patient Status Order with Admit Dx/Problem 05/16/17 17:11 Patient Status [ADT] Routine Admission Diagnosis/Problem Admission Diagnosis/Problem - planned 05/16/17 17:55 26yo EDC 06/01/2017 37 5/7wks. IOL due to Maternal SVT's, B+, R- equivocal, GBS pos, Functional Status: Reports: Pain Controlled, Tolerating Diet, Ambulating, Urinating - Review of Systems General: Reports: No Symptoms HEENT: Reports: No Symptoms Pulmonary: Reports: No Symptoms Cardiovascular: Reports: No Symptoms Gastrointestinal: Reports: No Symptoms Genitourinary: Reports: No Symptoms Musculoskeletal: Reports: No Symptoms Skin: Reports: No Symptoms Neurological: Reports: No Symptoms Psychiatric: Reports: No Symptoms - Patient Data Vitals - Most Recent: Last Vital Signs Temp 36.6 C 05/18/17 16:00 Pulse 94 05/18/17 16:00 Resp 16 05/18/17 16:00 BP 111/69 05/18/17 16:00 Pulse Ox 99 05/18/17 16:00 Weight - Most Recent: 113.398 kg Med Orders - Current: Current Medications Acetaminophen (Tylenol Extra Strength) 500 mg PO Q4H PRN PRN Reason: Pain Acetaminophen (Tylenol Extra Strength) 1,000 mg PO Q4H PRN PRN Reason: Pain Benzocaine/Menthol (Dermoplast Pain Relief 20%-0.5% [place]) 0 gm TOP ASDIRECTED PRN PRN Reason: Perineal Comfort Measure Bisacodyl (Dulcolax) 10 mg RECTAL .ONCE PRN PRN Reason: Constipation Docusate Sodium (Colace) 100 mg PO BID PRN PRN Reason: Constipation Emollient Ointment (Lansinoh Hpa) 0 gm TOP ASDIRECTED PRN PRN Reason: Sore Nipples Last Admin: 05/18/17 18:23 Dose: 1 applic Ibuprofen (Motrin) 400 mg PO Q4H PRN PRN Reason: Pain Ibuprofen (Motrin) 800 mg PO Q6H PRN PRN Reason: Pain Last Admin: 05/18/17 09:52 Dose: 800 mg Oxycodone HCl (Oxycodone) 5 mg PO Q2H PRN PRN Reason: Pain Witch Mela (Tucks) 1 pad TOP ASDIRECTED PRN PRN Reason: comfort care Discontinued Medications Ampicillin Sodium (Ampicillin) Confirm Administered Dose 2 gm IV .STK-MED ONE Stop: 05/17/17 06:22 Last Admin: 05/17/17 10:47 Dose: Not Given Carboprost Tromethamine (Hemabate Ds) 250 mcg IM ASDIRECTED PRN PRN Reason: Post Hemorrhage Hydroxyzine Pamoate (Vistaril) 50 mg PO BEDTIME PRN PRN Reason: Sleep Last Admin: 05/17/17 00:02 Dose: 50 mg Ampicillin Sodium 1 gm/ Sodium (Chloride) 50 mls @ 100 mls/hr IV Q4H CARMEN Last Admin: 05/17/17 10:42 Dose: 100 mls/hr Ampicillin Sodium 2 gm/ Sodium (Chloride) 100 mls @ 200 mls/hr IV ONETIME ONE Stop: 05/16/17 17:59 Last Admin: 05/17/17 06:37 Dose: 200 mls/hr Lactated Ringer's (Ringers, Lactated) 1,000 mls @ 150 mls/hr IV ASDIRECTED CARMEN Last Admin: 05/17/17 14:15 Dose: 150 mls/hr Oxytocin/Sodium Chloride (Oxytocin 30 Unit/500 Ml-Ns) 30 unit in 500 mls @ 250 mls/hr IV TITRATE CARMEN Oxytocin/Sodium Chloride (Oxytocin 30 Unit/500 Ml-Ns) 30 unit in 500 mls @ 2 mls/hr IV TITRATE CARMEN; 2 MUNITS/MIN PRN Reason: Protocol Last Titration: 05/17/17 18:12 Dose: 10 munits/min, 10 mls/hr Tranexamic Acid 1,000 mg/ (Sodium Chloride) 110 mls @ 660 mls/hr IV ONETIME PRN PRN Reason: Bleeding Sodium Chloride (Normal Saline) Confirm Administered Dose 100 mls @ as directed .ROUTE .STK-MED ONE Stop: 05/17/17 06:23 Last Admin: 05/17/17 10:47 Dose: Not Given Ampicillin Sodium 1 gm/ Sodium (Chloride) 50 mls @ 100 mls/hr IV Q4H [facility] Last Admin: 05/17/17 18:41 Dose: 100 mls/hr Fentanyl/Bupivacaine HCl (Ekovbept-Mkhac-Vy 2 Mcg/Ml-0.125%) Confirm Administered Dose 100 mls @ as directed EP .STK-MED ONE Stop: 05/17/17 14:04 Lidocaine HCl (Xylocaine 1%) 50 ml INJECT .ONCE PRN PRN Reason: Laceration repair Loperamide HCl (Imodium) 2 mg PO ONETIME ONE Stop: 05/17/17 12:44 Last Admin: 05/17/17 14:09 Dose: 2 mg Methylergonovine Maleate (Methergine) 0.2 mg IM ASDIRECTED PRN PRN Reason: Post Hemorrhage Misoprostol (Cytotec) 200 mcg PO .ONCE PRN PRN Reason: Post Hemorrhage Misoprostol (Cytotec) 25 mcg VAG Q4H PRN PRN Reason: Cervical Ripening Last Admin: 05/17/17 01:39 Dose: 25 mcg Misoprostol (Cytotec) 25 mcg PO Q4H PRN PRN Reason: Cervical Ripening Last Admin: 05/17/17 01:38 Dose: 25 mcg Nalbuphine HCl (Nubain) 10 mg IVPUSH Q1H PRN PRN Reason: Pain (severe 7-10) Oxytocin (Pitocin) Confirm Administered Dose 10 unit .ROUTE .RUST-MED ONE Stop: 05/17/17 19:32 Sodium Chloride (Saline Flush) 10 ml FLUSH ASDIRECTED PRN PRN Reason: Keep Vein Open Sodium Chloride (Saline Flush) 2.5 ml FLUSH ASDIRECTED PRN PRN Reason: Keep Vein Open Sterile Water (Sterile Water For Irrigation) 1,000 ml IRR ASDIRECTED PRN PRN Reason: delivery Terbutaline Sulfate (Brethine) 0.25 mg SUBCUT ASDIRECTED PRN PRN Reason: Tacysystole - Exam General: Reports: Alert, Oriented, Cooperative, No Acute Distress Lungs: Reports: Normal Respiratory Effort GI/Abdominal Exam: Soft (Female) Exam: Vaginal Bleeding Rectal (Female) Exam: Deferred Back Exam: Reports: Full Range of Motion Extremities: Normal Range of Motion, Non-Tender, No Pedal Edema, Normal Capillary Refill Skin: Reports: Warm, Dry, Intact Wound/Incisions: Reports: Healing Well Neurological: Reports: No New Focal Deficit, Normal Speech, Normal Tone Psy/Mental Status: Reports: Alert, Normal Affect, Normal Mood *Q Meaningful Use (DIS) - VTE *Q VTE Criteria *Q: - Stroke *Q Stroke Criteria *Q: - AMI *Q AMI Criteria *Q:
--- NOTE | 2017-05-20 13:29 | OR ---
SURGEON: Jakub Ceron MD DATE OF PROCEDURE: 05/17/2017 DELIVERY NOTE: Ms. Nunez is 26 years' old. She is para 1-0-0-1. She is followed primarily by our nurse vertical contour band saw operator. She had no complications. She is admitted for elective induction. She responded very well to the induction. She progressed to complete-complete. She had epidural anesthesia for labor analgesia. The patient pushed in excess of 2 hours. She was vertex, +2 station, and she was unable to push the fetus out. I was consulted to evaluate the patient. At the time of my consultation on arrival, the patient's vital signs were stable, heart rate was category I. On examination, the patient is complete-complete, vertex, +2 station with a strong possibility that she is an occiput posterior presentation. I assessed the pelvis of the patient, and I felt that the patient is amenable to forceps extraction, and after explaining to the patient and obtaining verbal consent from the patient, a Kiwi vacuum extraction is used, and with 2 pulls and with the patient pushing, I was able to deliver the fetus, and it was in the straight occiput posterior. There was 1 nuchal cord. The rest of the delivery was accomplished by the nurse vertical contour band saw operator, Chloe David. The placenta delivered spontaneous, complete and intact. There was no tear. There was no laceration. Estimated blood loss was 250 to 300 mL. heart rates through the entire process of the labor and delivery was category I, and scores reported to be 5 and 8 at 1 and 5 minutes. There was no complication. HANY / MICHELLE /[id number]
== END 2017-05-18 22:05 | disposition home or self-care (01) | DRG 560 ==
LOC: MW.OBCHECK 16:36 → MW.OB 17:11 → OBSVTOIN 05-17 19:23
PROVIDERS: ADMIT Obstetrics & Gynecology; ATTEND Advanced Practice Midwife
PROC: 10D07Z6 Extraction of Products of Conception, Vacuum, Via Natural or Artificial Opening (ICD-10-PCS; principal; 2017-05-17)
PROC: 3E0P7VZ Introduction of Hormone into Female Reproductive, Via Natural or Artificial Opening (ICD-10-PCS; 2017-05-17)
PROC: 3E033VJ Introduction of Other Hormone into Peripheral Vein, Percutaneous Approach (ICD-10-PCS; 2017-05-17)
PROC: 10907ZC Drainage of Amniotic Fluid, Therapeutic from Products of Conception, Via Natural or Artificial Opening (ICD-10-PCS; 2017-05-17)
DX: O64.0XX0 Obstructed labor due to incomplete rotation of fetal head, not applicable or unspecified (principal); O69.1XX0 Labor and delivery complicated by cord around neck, with compression, not applicable or unspecified; O75.4 Other complications of obstetric surgery and procedures; I47.1 Supraventricular tachycardia; O99.824 Streptococcus B carrier state complicating childbirth; Z3A.37 37 weeks gestation of pregnancy; Z37.0 Single live birth
CPT/HCPCS: 01967; 36415; 51702; 59025; 59409; 85027; 86850; 86900; 86901; A9270-GY; J0290; J2590; J7030; J7050; J7120

== ENCOUNTER 2017-10-31 12:28 | Day surgery (SDC) | payer BC, OTHER ==
[~2017-10-31 12:28] MED LIST: Lactated Ringers 1,000 ML IV SCH
[2017-10-31] MEDS ORDERED: Propofol 200 MG/20 ML SDV ONE (12:50)
[2017-10-31] MEDS ORDERED: Lidocaine 2% 5 ML SDV ONE (13:02)
[2017-10-31] MEDS ORDERED: fentaNYL 100 MCG/2 ML SDV ONE (13:02)
[2017-10-31] MEDS ORDERED: Midazolam 1 MG/ML 2 ML SDV ONE (13:02)
--- NOTE | 2017-10-31 13:45 | PCM.PREANE ---
Preanesthetic Assessment - Procedure Proposed Procedure: EGD - Anesthesia/Transfusion/Family Hx Anesthesia History: Prior Anesthesia Without Reaction Family History of Anesthesia Reaction: No Transfusion History: No Prior Transfusion(s) Intubation History: Unknown - Review of Systems Pulmonary: No Symptoms Cardiovascular: Palpitations (hx of PSVT during ) Gastrointestinal: Other (heartburn) Neurological: No Symptoms Other: Reports: Anxiety - Physical Assessment NPO Status Date: 10/30/17 NPO Status Time: 21:00 O2 Sat by Pulse Oximetry: 97 Respiratory Rate: 16 Vital Signs: Last Vital Signs Temp 99.1 F 10/31/17 13:31 Pulse 94 10/31/17 13:31 Resp 16 10/31/17 13:31 BP 124/64 10/31/17 13:31 Pulse Ox 97 10/31/17 13:31 Height: 5 ft 9 in Weight: 253 lb ASA Class: 2 Airway Class: Mallampati = 1 Dentition: Reports: Normal Dentition Thyro-Mental Finger Breadths: 3 Mouth Opening Finger Breadths: 3 ROM/Head Extension: Full Lungs: Clear to Auscultation, Normal Respiratory Effort Cardiovascular: Regular Rate, Regular Rhythm, No Murmurs - Lab Values: Laboratory Last Values Urine HCG, Qual NEGATIVE (NEGATIVE) 10/31/17 13:13 - Allergies Allergies/Adverse Reactions: Allergies Allergy/AdvReac Type Severity Reaction Status Date / Time No Known Allergies Allergy Verified 10/25/17 10:04 - Blood Blood Available: No Product(s) Available: None - Anesthesia Plan Pre-Op Medication Ordered: None - Acknowledgements Anesthesia Type Planned: MAC Pt an Appropriate Candidate for the Planned Anesthesia: Yes Alternatives and Risks of Anesthesia Discussed w Pt/Guardian: Yes Pt/Guardian Understands and Agrees with Anesthesia Plan: Yes Additional Comments: at bedside; related SVT reocrded and has not reoccurred since the one episode. PreAnesthesia Questionnaire - Past Health History Medical/Surgical History: Denies Medical/Surgical History HEENT History: Reports: None Cardiovascular History: Reports: Arrhythmia, Other (See Below) Other Cardiovascular History: SVT during second Gastrointestinal History: Reports: GERD Genitourinary History: Reports: None REHAB TECH History: Reports: Ectopic , Psychiatric History: Reports: Anxiety Endocrine/Metabolic History: Reports: Obesity/BMI 30+ - Past Surgical History Head Surgeries/Procedures: Reports: None HEENT Surgical History: Reports: Oral Surgery Cardiovascular Surgical History: Reports: None Female Surgical History: Reports: Other (See Below) Other Female Surgeries/Procedures: laparoscopy for removal of large dermoid cyst from ovary - SUBSTANCE USE Smoking Status *Q: Never Smoker Recreational Drug Use History: No - HOME MEDS Home Medications: Home Meds Sertraline [Zoloft] 200 mg PO DAILY 10/10/15 [History] LORazepam 1 tab PO ASDIRECTED PRN 10/25/17 [History] Omeprazole 40 mg PO DAILY 10/25/17 [History] - CURRENT (IN HOUSE) MEDS Current Meds: Current Medications Lactated Ringer's (Ringers, Lactated) 1,000 mls @ 125 mls/hr IV ASDIRECTED CARMEN Discontinued Medications Fentanyl (Sublimaze) Confirm Administered Dose 100 mcg .ROUTE .STK-MED ONE Stop: 10/31/17 13:03 Lidocaine (Xylocaine-Mpf 2%) Confirm Administered Dose 5 ml .ROUTE .STK-MED ONE Stop: 10/31/17 13:03 Midazolam HCl (Versed 1 Mg/Ml) Confirm Administered Dose 2 mg .ROUTE .STK-MED ONE Stop: 10/31/17 13:03 Propofol (Diprivan 20 Ml) Confirm Administered Dose 200 mg .ROUTE .STK-MED ONE Stop: 10/31/17 12:51
--- NOTE | 2017-10-31 14:34 | PCM.OPNOTE ---
- General Post-Op/Procedure Note Date of Surgery/Procedure: 10/31/17 Operative Procedure(s): egd w bx Findings: see dict [id number] Pre Op Diagnosis: anemia Post-Op Diagnosis: Same Anesthesia Technique: Moderate Sedation Primary Surgeon: Johnny Dhaliwal Pathology: egd bx Complications: None Condition: Good
--- NOTE | 2017-10-31 14:46 | PCM.POSTAN ---
POST ANESTHESIA ASSESSMENT - MENTAL STATUS Mental Status: Alert, Oriented - RESPIRATORY Respiratory Status: Respiratory Rate WNL, Airway Patent, O2 Saturation Stable - CARDIOVASCULAR CV Status: Pulse Rate WNL, Blood Pressure Stable - GASTROINTESTINAL GI Status: No Symptoms - POST OP HYDRATION Hydration Status: Adequate & Stable
[2017-10-31 15:03] VITALS: BP 116/61
--- NOTE | 2017-10-31 15:08 | PCM48HPAN ---
Post Anesthesia Note - EVALUATION WITHIN 48HRS OF ANESTHETIC Vital Signs in Normal Range: Yes Patient Participated in Evaluation: Yes Respiratory Function Stable: Yes Airway Patent: Yes Cardiovascular Function Stable: Yes Hydration Status Stable: Yes Pain Control Satisfactory: Yes Nausea and Vomiting Control Satisfactory: Yes Mental Status Recovered: Yes Resp Rate: 15
--- NOTE | 2017-10-31 16:17 | OR ---
SURGEON: Johnny Dhaliwal MD DATE OF PROCEDURE: 10/31/2017 PREOPERATIVE DIAGNOSIS: Anemic. POSTOPERATIVE DIAGNOSIS: Mild gastroesophageal reflux disease. PROCEDURE IN DETAIL: EGD with biopsy. PROCEDURE IN DETAIL: EGD: The patient was taken to the endoscopy room, and with the CARPENTER ASSISTANT INSTALLER, Diprivan was administered. A well-lubricated EGD scope was gently inserted through the oropharynx, down the esophagus, passing through the gastroesophageal junction, into the stomach. The mucosa was examined upon the passage. Any etiology will be noted. Once in the stomach, we continued to advance to the distal antrum, passed through the pylorus into the second portion of the duodenum. Again, the mucosa was examined for any abnormality and etiology. The scope was then retrieved back to the stomach and then retroflexed to look at the fundus of the stomach. If a biopsy was indicated, we will biopsy the antrum, body, and gastroesophageal junction. The air will be sucked out while the scope is retrieved to reduce the patient's discomfort. The patient tolerated the procedure well. There were no intraoperative complications. Dr. Dhaliwal was present through the whole procedure. Prior to surgery, a time-out had been called, the patient identified, procedure identified and antibiotic administered. FINDINGS: 1. The patient is easily sedated with CARPENTER ASSISTANT INSTALLER and Diprivan. The patient is soundly snoring. 2. Oropharynx and proximal esophagus are free of disease and no stricture inflammation or ulceration observed and distal esophagus at 36 shows mild salmon-color change consistent with mild acid reflux. No ulcer or inflammation observed. Gastric rugae are normal in appearance and there is no blood, ulcer, bile, or food particle. Antrum is totally normal. Duodenum was grossly normal in appearance and the scope retrieved back to the stomach, looked at the fundus of stomach. There is no hiatal hernia biopsy done at antrum, body, and GE junction. Sucked out the air while scope pulling out. There were several polyps at the greater curvature and one of them was biopsied. The patient has several very tiny 2 mm gastric polyps. TORRES / MICHELLE /[id number]
== END 2017-10-31 15:00 | disposition home or self-care (01) ==
LOC: MW.SDS 12:28
PROVIDERS: ATTEND Surgery
DX: D64.9 Anemia, unspecified (principal); K29.50 Unspecified chronic gastritis without bleeding; K31.7 Polyp of stomach and duodenum; K20.9 Esophagitis, unspecified; E66.9 Obesity, unspecified; Z68.37 Body mass index [BMI] 37.0-37.9, adult; K21.9 Gastro-esophageal reflux disease without esophagitis; F41.9 Anxiety disorder, unspecified; Z79.899 Other long term (current) drug therapy
CPT/HCPCS: 43239; 81025; J2250; J2704; J3010

== ENCOUNTER 2024-05-04 09:42 | Day surgery (SDC) | payer OTHER ==
[~2024-05-04 09:42] MED LIST changes: -Lactated Ringers 1,000 ML IV SCH; +Lidocaine 2% 5 ML SDV ONE; +Sodium Chloride 0.9% 10 ML Syringe FLUSH PRN; +Sodium Chloride 0.9% 2.5 ML Syringe FLUSH PRN; +Sodium Chloride 0.9% 20 ML SDV IV PRN; +propofoL 500 MG/50 ML 50 ML ONE
[2024-05-04] MEDS: Lactated Ringers 1,000 ML IV SCH (10:10)
[2024-05-04] MEDS ORDERED: dexmedeTOMIDine HCl 200 MCG/2 ML SDV ONE (10:36)
[2024-05-04] MEDS ORDERED: propofoL 500 MG/50 ML 50 ML ONE (10:40)
[2024-05-04] MEDS ORDERED: Dexamethasone 4 MG/ML 5 ML MDV ONE (11:04)
[2024-05-04 11:52] VITALS: BP 106/52; PULSE 75
== END 2024-05-04 11:55 | disposition home or self-care (01) ==
LOC: MW.SDS 09:42
PROVIDERS: ATTEND Surgery
DX: D50.9 Iron deficiency anemia, unspecified (principal); K29.50 Unspecified chronic gastritis without bleeding; K31.7 Polyp of stomach and duodenum; K21.9 Gastro-esophageal reflux disease without esophagitis; E66.01 Morbid (severe) obesity due to excess calories; F41.9 Anxiety disorder, unspecified; Z79.899 Other long term (current) drug therapy
CPT/HCPCS: 43239; 43251; 45380; 81025; J1100; J2003; J2704; J7120; 00813